=== PATIENT | female | born 1960 | race Caucasian/White ===

== ENCOUNTER 2017-04-03 01:03 | Emergency (ER) | payer OTHER, MEDICAID ==
[2017-04-03 01:08] VITALS: RESP 16
[2017-04-03 01:43] LABS: % IMMATURE GRANULYOCYTES 0.9 % (0.0-1.1); ABSOLUTE IMMATURE GRANULOCYTES 0.07 10^3/uL (0.00-0.10); ABSOLUTE NRBC COUNT 0.06 10^3/uL (0-0.01); ADD DIFF? NO; ADD MORPH? NO; ADD SCAN? NO; ATYPICAL LYMPHOCYTE FLAG 0 (0-99); FRAGMENT RBC FLAG 0 (0-99); HEMATOCRIT 39.8 % (38.0-47.0); HEMOGLOBIN 14.9 g/dL (12.6-16.3); LEFT SHIFT FLG 10 (0-99); LIPEMIA HEMOLYSIS FLAG 90 (0-99); MEAN CELL HEMOGLOBIN 39.3 pg (27.9-34.1); MEAN CELL HEMOGLOBIN CONCENTR. 37.4 g/dL (32.4-36.7); MEAN PLATELET VOLUME 11.6 fL (8.7-11.7); NRBC-AUTO% 0.8 % (0.0-0.2); PLATELET CLUMPS FLAG 20 (0-99); PLATELET COUNT 131 10^3/uL (150-400); RED BLOOD CELL COUNT 3.79 10^6/uL (4.18-5.33); RED CELL DISTRIBUTION WIDTH 15.1 % (11.5-15.2)
[2017-04-03 02:46] LABS: ALANINE AMINOTRANSFERASE 40 IU/L (9-52); ALBUMIN 3.9 g/dL (3.5-5.0); ALKALINE PHOSPHATASE 179 IU/L (38-126); ANION GAP 20 mEq/L (8-16); ASPARTATE AMINOTRANSFERASE 165 IU/L (14-46); BILIRUBIN,TOTAL 0.9 mg/dL (0.1-1.4); CALCIUM 9.2 mg/dL (8.5-10.4); CARBON DIOXIDE 23 mEq/l (22-31); CHLORIDE 99 mEq/L (97-110); CREATININE 0.5 mg/dL (0.6-1.0); GLOMERULAR FILTRATION RATE > 60; GLUCOSE 106 mg/dL (70-100); POTASSIUM 2.8 mEq/L (3.5-5.2); SODIUM 142 mEq/L (134-144); TOTAL PROTEIN 6.7 g/dL (6.3-8.2)
[2017-04-03 02:58] LABS: ETHANOL SERUM 369 mg/dL (0-10)
[2017-04-03] MEDS ORDERED: MAGNESIUM SULF 2 GM/WATER 50 ML IV ONE (03:10)
[2017-04-03] MEDS ORDERED: POTASSIUM Cl (KCl) 100 ML IV ONE (03:10)
[2017-04-03] MEDS ORDERED: POTASSIUM CL 20 MEQ/15 ML UDCUP PO ONE (03:11)
[2017-04-03] MEDS ORDERED: NS 1,000 ML IV ONE (05:00)
[2017-04-03 06:36] VITALS: TEMP 98.2
--- NOTE | 2017-04-03 06:57 | EDPHY ---
H & P Stated Complaint: ETOH, lac to the forehead Source: Patient, EMS Exam Limitations: Intoxication - Personal History Current Tetanus/Diphtheria Vaccine: Yes Current Tetanus Diphtheria and Acellular Pertussis (TDAP): Yes Tetanus Vaccine Date: <1 yr - Medical/Surgical History Hx Asthma: No Hx Chronic Respiratory Disease: No Hx Diabetes: No Hx Cardiac Disease: Yes Hx Renal Disease: No Hx Cirrhosis: No Hx Alcoholism: Yes Hx HIV/AIDS: No Hx Splenectomy or Spleen Trauma: No Other PMH: HTN, alcoholism, HEP C, RAD, PTSD, dx of meningioma tumor in 09/2014- now midline shift 12/2015, seizure, smoker, homeless. - Social History Smoking Status: Heavy smoker HPI/ROS: HPI The patient presents brought in by ambulance for alcohol intoxication and a fall which occurred just prior to arrival. Apparently, the patient was sitting on a park bench when she fell forward hitting her face. She said that she has been drinking alcohol throughout the evening tonight. There was no loss of consciousness noted by bystanders. The patient does seem confused to the paramedics and is oriented to person and place only.. REVIEW OF SYSTEMS Constitutional: No fever, no chills. Eyes: No discharge. ENT: No sore throat. Cardiovascular: No chest pain, no palpitations. Respiratory: No cough, no shortness of breath. Gastrointestinal: No abdominal pain, no vomiting. Genitourinary: No hematuria. Musculoskeletal: No back pain. Skin: No rashes. Neurological: No headache. PMHx: History of meningioma, status post resection Soc Hx: Homeless, chronic alcohol abuse PHYSICAL General Appearance: Intoxicated, sleepy Eyes: Pupils equal and round no pallor or injection ENT, Mouth: Mucous membranes moist Respiratory: There are no retractions, lungs are clear to auscultation Cardiovascular: Regular rate and rhythm Gastrointestinal: Abdomen is soft and non-tender, no masses, bowel sounds normal Neurological: A&O, moves all extremities Skin: Left sided abrasion to her eyebrow, a a small punctate laceration to her left nose Musculoskeletal: Neck is supple non tender Extremities: symmetrical, full range of motion Psychiatric: Patient is oriented X 2, there is no agitation (Riguzzi,Lori) Constitutional: Initial Vital Signs Heart Rate 90 04/03/17 01:06 Respiratory Rate 16 04/03/17 01:06 Blood Pressure 139/101 H 04/03/17 01:06 O2 Sat (%) 98 04/03/17 01:06 O2 Delivery Mode Room Air O2 (L/minute) 2 Allergies/Adverse Reactions: Penicillins Allergy (Verified 04/03/17 01:05) Home Medications: Medication Instructions Recorded Nicotine [Nicoderm Cq 21 mg (*)] 21 mg TD DAILY 01/22/16 Acetaminophen [Tylenol 325mg (*)] 650 mg PO Q4 PRN #0 tab 02/05/16 Sodium Chloride [Salt Tablet] 1,000 mg PO TIDMEAL #0 tab 02/05/16 levETIRAcetam [Keppra 500 mg (*)] 1,000 mg PO BID #0 tab 02/05/16 Medical Decision Making - Diagnostics Imaging Results: CT head noncontrast demonstrates soft tissue swelling without any fracture or acute intracranial hemorrhage, discussed with Dr. Vilchis of Radiology. (Lori Pleitez) Differential Diagnosis: 57-year-old female, history of meningioma resection, chronic alcohol use, homelessness presents brought in by ambulance after a fall off of a park bench with signs of facial trauma and confusion, in the setting of alcohol intoxication. Differential diagnosis includes intracranial hemorrhage, meningioma recurrence, alcohol intoxication, concussion. In the emergency department, CT scan of the patient's head was performed and was unremarkable for any acute intracranial hemorrhage. Her facial wounds were irrigated and do not require any sort of repair besides wound care. Basic labs were checked and she was found to be hypokalemic. Given her history of alcohol use, she was repleted with magnesium and potassium without difficulty. She became more more clinically sober throughout her time in the emergency department. At 6:15 a.m., we attempted to walker, however she was still unsteady on her feet. At 7:00 a.m. the case will be signed out to the oncoming provider Dr. Prem Peacock pending ambulatory trial. She is on [facility] hold and will be taken there after she is discharged from the emergency department. (Lori Pleitez) Other Provider: Care assumed at 7:00 a.m.. Patient has had her potassium replaced. Discharge is pending clinical sobriety 720: Alert, ambulatory, states "I am all okay "no medical complaints at this time, not ataxic, stable for discharge (Prem Peacock) - Data Points Laboratory Results: Laboratory Results 04/03/17 01:30 04/03/17 02:09 04/03/17 04/03/17 04/03/17 02:09 01:30 01:30 WBC 7.76 10^3/uL 10^3/uL (3.80-9.50) RBC 3.79 10^6/uL L 10^6/uL (4.18-5.33) Hgb 14.9 g/dL g/dL (12.6-16.3) Hct 39.8 % % (38.0-47.0) MCV 105.0 fL H fL (81.5-99.8) MCH 39.3 pg H pg (27.9-34.1) MCHC 37.4 g/dL H g/dL (32.4-36.7) RDW 15.1 % % (11.5-15.2) Plt Count 131 10^3/uL L 10^3/uL (150-400) MPV 11.6 fL fL (8.7-11.7) Neut % (Auto) 53.7 % % (39.3-74.2) Lymph % (Auto) 30.0 % % (15.0-45.0) Cooke % (Auto) 12.0 % % (4.5-13.0) Eos % (Auto) 2.2 % % (0.6-7.6) Baso % (Auto) 1.2 % % (0.3-1.7) Nucleat RBC Rel Count 0.8 % H % (0.0-0.2) Absolute Neuts (auto) 4.17 10^3/uL 10^3/uL (1.70-6.50) Absolute Lymphs (auto) 2.33 10^3/uL 10^3/uL (1.00-3.00) Absolute Monos (auto) 0.93 10^3/uL H 10^3/uL (0.30-0.80) Absolute Eos (auto) 0.17 10^3/uL 10^3/uL (0.03-0.40) Absolute Basos (auto) 0.09 10^3/uL 10^3/uL (0.02-0.10) Absolute Nucleated RBC 0.06 10^3/uL H 10^3/uL (0-0.01) Immature Gran % 0.9 % % (0.0-1.1) Immature Gran # 0.07 10^3/uL 10^3/uL (0.00-0.10) Sodium 142 mEq/L mEq/L TNP (134-144) Potassium 2.8 mEq/L L mEq/L TNP (3.5-5.2) Chloride 99 mEq/L mEq/L TNP (97-110) Carbon Dioxide 23 mEq/l mEq/l TNP (22-31) Anion Gap 20 mEq/L H mEq/L TNP (8-16) BUN 3 mg/dL L mg/dL TNP (7-23) Creatinine 0.5 mg/dL L mg/dL TNP (0.6-1.0) Estimated GFR > 60 TNP Glucose 106 mg/dL H mg/dL TNP (70-100) Calcium 9.2 mg/dL mg/dL TNP (8.5-10.4) Total Bilirubin 0.9 mg/dL mg/dL TNP (0.1-1.4) AST 165 IU/L H IU/L TNP (14-46) ALT 40 IU/L IU/L TNP (9-52) Alkaline Phosphatase 179 IU/L H IU/L TNP (38-126) Total Protein 6.7 g/dL g/dL TNP (6.3-8.2) Albumin 3.9 g/dL g/dL TNP (3.5-5.0) Specimen Hemolysis REJ Ethyl Alcohol 369 mg/dL H mg/dL TNP (0-10) Medications Given: Discontinued Medications Magnesium Sulfate (Magnesium Sulf 2 Gm (Premix)) 50 mls @ 50 mls/hr IV EDNOW ONE Stop: 04/03/17 04:09 Last Admin: 04/03/17 03:37 Dose: 50 mls Potassium Chloride (Potassium Cl 10 Meq (Premix)) 100 mls @ 100 mls/hr IV ONCE ONE Stop: 04/03/17 04:09 Last Admin: 04/03/17 04:35 Dose: 100 mls Sodium Chloride (Ns) 1,000 mls @ 0 mls/hr IV EDNOW ONE; Wide Open PRN Reason: Protocol Stop: 04/03/17 05:01 Last Admin: 04/03/17 05:45 Dose: 1,000 mls Potassium Chloride (Potassium Chloride Oral Liquid) 40 meq PO EDNOW ONE Stop: 04/03/17 03:12 Last Admin: 04/03/17 03:34 Dose: 40 meq Departure - Departure Disposition: Home, Routine, Self-Care Clinical Impression: Hypokalemia Alcohol intoxication Qualifiers: Complication of substance-induced condition: uncomplicated Qualified Code(s): F10.920 - Alcohol use, unspecified with intoxication, uncomplicated Fall Qualifiers: Encounter type: initial encounter Qualified Code(s): W19.XXXA - Unspecified fall, initial encounter Facial abrasion Qualifiers: Encounter type: initial encounter Qualified Code(s): S00.81XA - Abrasion of other part of head, initial encounter Condition: Good Instructions: Alcohol Intoxication (ED) Referrals: [facility],. [Clinic] - As per Instructions
[2017-04-03] MEDS ORDERED: CHLORDIAZEPOXIDE 25MG PREPK#6 BTL TAKEHOME ONE (07:31)
[2017-04-03 07:35] VITALS: BP 105/68; PULSE 90; O2SAT 95
== END 2017-04-03 07:35 | disposition home or self-care (01) ==
LOC: EDUNIT#
DX: S00.81XA Abrasion of other part of head, initial encounter (principal); E87.6 Hypokalemia; F10.920 Alcohol use, unspecified with intoxication, uncomplicated; I10 Essential (primary) hypertension; F17.200 Nicotine dependence, unspecified, uncomplicated; E86.9 Volume depletion, unspecified; Z86.011 Personal history of benign neoplasm of the brain; W01.198A Fall on same level from slipping, tripping and stumbling with subsequent striking against other object, initial encounter; Y92.830 Public park as the place of occurrence of the external cause; Y99.8 Other external cause status; Y93.89 Activity, other specified
CPT/HCPCS: 96374; G0480

== ENCOUNTER → 2017-05-19 | Outpatient (CLI) | payer MEDICAID, OTHER | LOC: FIMAGING 11:54 | PROVIDERS: ATTEND Family Medicine | DX: Z12.31 Encounter for screening mammogram for malignant neoplasm of breast (principal) ==

== ENCOUNTER 2017-08-18 19:11 | Emergency (ER) | payer MEDICAID ==
--- NOTE | 2017-08-18 19:16 | EDPHY ---
H & P Time Seen by Provider: 08/18/17 19:15 HPI/ROS: HPI: This is a 57-year-old female who presents with Chief Complaint: Facial abrasion, alcohol Location: Face Quality: Abrasion Duration: Prior to arrival Signs and Symptoms: +bleeding, no radiation, no numbness, no weakness, no tingling, no incontinence, no decreased range of motion, no swelling, no pain, no fever Timing: Acute Severity: Mild Context: Patient has a history of alcoholism, hepatitis-C presents via EMS as she was getting off the bus in front of the homeless group home and tripped over the step falling face 1st into the cement. Witnessed fall. Denies LOC/neck pain /dizziness/nausea/vomiting/amnesia. Patient lost a tooth and does not know where it is. Patient reports that she drank"a lot of alcohol today." Reports she had a tetanus booster shot approximately 2 weeks ago. Denies shortness of breath, chest pain, abdominal pain, headache. Modifying Factors: None Comment: ROS: see HPI Constitutional: No fever, no chills, no weight loss Eyes: No blurred vision Respiratory: No shortness of breath, no cough Cardiovascular: No chest pain Gastrointestinal: No nausea, no vomiting no diarrhea Genitourinary: No dysuria Extremities: No myalgias Neurologic: No weakness, no numbness Skin: No rashes Hematologic: No bruising, no bleeding MEDICAL/SURGICAL/SOCIAL HISTORY: Medical history: HTN, alcoholism, HEP C, RAD, PTSD, dx of meningioma tumor in -now midline shift 12/2015, seizure, smoker Surgical history: Denies Social history: Homeless. Family history noncontributory. CONSTITUTIONAL: Intoxicated adult female, smells heavily of alcohol, cooperative with exam, awake and alert, no obvious distress HEENT: normocephalic, left eyebrow abrasion/laceration, nasal bridge abrasion noted. PERRL, EOMI. no globe entrapment, no raccoon eyes. no Lopez signs.Tympanic membranes clear. No tympanic membrane rupture. Nares patent; no septal hematoma. Oropharynx clear, no exudate and moist pink mucosa. No malocclusion. Missing bottom right front tooth-no active bleeding. Airway patent. No lymphadenopathy. NECK: supple, no midline tenderness, flexion 45 degrees, extension 45 degrees, right and left lateral flexion 45 degrees. No meningismus. Cardiovascular: Normal S1/S2, regular rate, regular rhythm, without murmur rub or gallop. PULMONARY/CHEST: Symmetrical and nontender. no crepitus. Clear to auscultation bilaterally. Good air movement. No accessory muscle usage. ABDOMEN: Soft, nondistended, nontender, no ecchymosis, no rebound, no guarding , no peritoneal signs, no masses or organomegaly. No CVAT. PELVIC: no pain with rocking; bilateral hips flexion 125 degrees, extension 30 degrees, with no pain internal rotation and no pain external rotation. BACK: No midline tenderness, no paraspinous spasm, deep tendon reflexes 2/2, no pain with straight leg raise EXTREMITIES: 2/2 pulses, no deformities, no clubbing, no cyanosis or edema. NEUROLOGICAL: no focal neuro deficits. GCS 15. Speech somewhat slurred. Alert and oriented x3. SKIN: Warm and dry, no erythema. no rash. Good capillary refill. Source: Patient, RN/MD, EMS Exam Limitations: Intoxication - Personal History Tetanus Vaccine Date: <1 yr - Medical/Surgical History Hx Asthma: No Hx Chronic Respiratory Disease: No Hx Diabetes: No Hx Cardiac Disease: Yes Hx Renal Disease: No Hx Cirrhosis: No Hx Alcoholism: Yes Hx HIV/AIDS: No Hx Splenectomy or Spleen Trauma: No Other PMH: HTN, alcoholism, HEP C, RAD, PTSD, dx of meningioma tumor in 09/2014- now midline shift 12/2015, seizure, smoker, homeless. - Social History Smoking Status: Heavy smoker Constitutional: Initial Vital Signs Temperature (C) 36.9 C 08/18/17 19:11 Heart Rate 78 08/18/17 19:11 Respiratory Rate 16 08/18/17 19:11 Blood Pressure 134/94 H 08/18/17 19:11 O2 Sat (%) 94 08/18/17 19:11 O2 Delivery Mode Room Air Allergies/Adverse Reactions: Penicillins Allergy (Verified 04/03/17 01:05) Home Medications: Medication Instructions Recorded Nicotine [Nicoderm Cq 21 mg (*)] 21 mg TD DAILY 01/22/16 Acetaminophen [Tylenol 325mg (*)] 650 mg PO Q4 PRN #0 tab 02/05/16 Sodium Chloride [Salt Tablet] 1,000 mg PO TIDMEAL #0 tab 02/05/16 levETIRAcetam [Keppra 500 mg (*)] 1,000 mg PO BID #0 tab 02/05/16 Medical Decision Making - Diagnostics Imaging Results: Imaging Impressions Face CT 08/18/17 19:26 Impression: 1. Atrophy and probable small vessel disease. 2. Scalp hematoma in the region of the left orbit. 3. Prior left frontal craniotomy, with associated postoperative encephalomalacia in the left frontal lobe, unchanged from 2017. Nothing acute is identified. CT of the Facial Bones (Without Contrast) Clinical Indications: Pain following trauma. Technique: Noncontrast axial images were obtained through the facial bones at 1.25-mm thickness. Sagittal and coronal reformations are performed. Dose reduction techniques were utilized. Images are degraded by patient motion artifact. Findings: A fracture is not identified. Soft tissue swelling is seen about the left orbit. Impression: Facial bones are negative for acute posttraumatic sequela. Results called and discussed with Ainsley Miller PA-C, on August 18, 2017 at 2045. E:amm Head CT 08/18/17 19:26 Impression: 1. Atrophy and probable small vessel disease. 2. Scalp hematoma in the region of the left orbit. 3. Prior left frontal craniotomy, with associated postoperative encephalomalacia in the left frontal lobe, unchanged from 2017. Nothing acute is identified. CT of the Facial Bones (Without Contrast) Clinical Indications: Pain following trauma. Technique: Noncontrast axial images were obtained through the facial bones at 1.25-mm thickness. Sagittal and coronal reformations are performed. Dose reduction techniques were utilized. Images are degraded by patient motion artifact. Findings: A fracture is not identified. Soft tissue swelling is seen about the left orbit. Impression: Facial bones are negative for acute posttraumatic sequela. Results called and discussed with Ainsley Miller PA-C, on August 18, 2017 at 2045. E:amm Procedures: Procedure: Laceration repair. Verbal consent was obtained from the patient. The v-shaped, simple, 1.5 cm laceration above the left eyebrow was anesthetized in the usual fashion using 4 mL of 0.5% bupivacaine with epinephrine. The wound was irrigated, draped and explored to its base with a gloved finger. There were no deep structures involved. No tendon injury was identified. The wound was repaired with #3, 5 0 Vicryl. Good hemostasis was achieved and patient tolerated procedure well. The procedure was performed by myself. ED Course/Re-evaluation: Head CT required as intoxicated, unknown LOC. CT maxillofacial scan ordered due to extensive abrasions, intoxicated. Let topical applied; abrasions clean with mild soap and water. Tooth completely avulsed; unable to be found; no active bleeding; supportive care advised. 2043: Called by radiologist who advised that head CT scan is unchanged as far as the encephalomalacia and old craniotomy flap. Cervical CT scan shows no acute fracture; soft tissue swelling above the left eyebrow noted. 0: BREATH 0.158. Patient ambulated without difficulty and no signs of ataxia to the bathroom without assistance. There are no warming shelters open this evening. Patient will be discharged to the [facility] with Librium prepack. This patient was seen under the supervision of my secondary supervising physician. I evaluated care for this patient independently. Differential Diagnosis: Head injury including but not limited to concussion, skull fracture, intraparenchymal contusion, subarachnoid, subdural and epidural hematoma. - Data Points Medications Given: Discontinued Medications Tetracaine/Epinephrine/Lidocaine (Let Gel Topical) 1 ea TP EDNOW ONE Stop: 08/18/17 19:22 Last Admin: 08/18/17 19:44 Dose: 1 ea Departure - Departure Clinical Impression: Abrasion of nose, initial encounter Alcohol intoxication Qualifiers: Complication of substance-induced condition: uncomplicated Qualified Code(s): F10.920 - Alcohol use, unspecified with intoxication, uncomplicated Laceration of left eyebrow without complication Qualifiers: Encounter type: initial encounter Qualified Code(s): S01.112A - Laceration without foreign body of left eyelid and periocular area, initial encounter Head injury Qualifiers: Encounter type: initial encounter Qualified Code(s): S09.90XA - Unspecified injury of head, initial encounter Condition: Good Instructions: Abrasion (ED), Care For Your Absorbable Stitches (ED), Facial Laceration (ED) Additional Instructions: The laceration above your left eyebrow was repaired with absorbable sutures today. These do not need to be removed. They will dissolve slowly over time. Wash facial abrasions daily with mild soap and water; then pat dry; apply topical antibiotic ointment. Take Tylenol 650 mg every 4 hours and/or Ibuprofen 600 mg every 8 hours with food as needed for pain. Follow-up with [facility] at [phone] to discussed tooth loss. Eat a bland diet for the next 48 hours and then slowly advance as tolerated. Please observe concussion precautions. Return to the ER immediately if you have progressive headaches, neurologic deficits, gait abnormality, visual disturbance, slurred speech, or any other symptom that concerns you. Referrals: [facility],. [Clinic] - As per Instructions [facility] 24 Hours [Outside] - As per Instructions
[2017-08-18] MEDS ORDERED: LET GEL TOPICAL 1 EA SYR TP ONE (19:21)
[2017-08-18] MEDS ORDERED: SKIN ADHESIVE (DERMABOND) 1 EACH TP ONE (20:17)
[2017-08-18 21:36] VITALS: BP 95/64
[2017-08-18] MEDS ORDERED: CHLORDIAZEPOXIDE 25MG PREPK#6 BTL TAKEHOME ONE (21:40)
== END 2017-08-18 22:02 | disposition home or self-care (01) ==
PROC: 0HQ1XZZ Repair Face Skin, External Approach (ICD-10-PCS; principal; 2017-08-18)
DX: S09.90XA Unspecified injury of head, initial encounter (principal); S01.112A Laceration without foreign body of left eyelid and periocular area, initial encounter; F10.920 Alcohol use, unspecified with intoxication, uncomplicated; I10 Essential (primary) hypertension; F17.200 Nicotine dependence, unspecified, uncomplicated; V78.6XXA Passenger on bus injured in noncollision transport accident in traffic accident, initial encounter; Y92.410 Unspecified street and highway as the place of occurrence of the external cause; Y99.8 Other external cause status; Y93.89 Activity, other specified